=== PATIENT | male | born 1930 | race Caucasian/White ===

== ENCOUNTER → 2020-06-29 | Outpatient (CLI) | payer MEDICARE ==
[~2020-06-29] MED LIST: DIPH25TA26 PO; HYDR-3248 PO; LORA10TA75 PO; LUTE20TA PO; OMNIPAQUE 350 MG/ML, 150 ML BOTTLE ONE; b-complex PO; calcium PO; coq10 PO; doxazosin PO; magnesium PO; potassium PO; quinapril PO; tramadol PO
[2020-06-29 14:08] LABS: CREATININE 1.17 mg/dL (0.7-1.3)
== END | disposition home or self-care (01) ==
LOC: RAD 13:14
PROVIDERS: ATTEND Physician Assistant
DX: N28.1 Cyst of kidney, acquired (principal); N40.0 Benign prostatic hyperplasia without lower urinary tract symptoms; M51.36 Other intervertebral disc degeneration, lumbar region; K86.1 Other chronic pancreatitis; K86.89 Other specified diseases of pancreas; R31.0 Gross hematuria
CPT/HCPCS: 36415; 74178; 82565; Q9967